=== PATIENT | female | born 1940 | race African-American/Black ===

== ENCOUNTER 2017-08-01 11:47 | Emergency (ER) | payer MEDICARE, BC ==
[~2017-08-01] VITALS: Ht 160 cm; Wt 60.0 kg
[2017-08-01 12:05] VITALS: BP 189/86
[2017-08-01] MEDS ORDERED: AMLO5TAB88 (12:08)
[2017-08-01] MEDS ORDERED: LORA10TA7 (12:08)
[2017-08-01] MEDS ORDERED: TRAMADOL 50MG TABLET PO ONE (16:30)
== END 2017-08-01 18:26 | disposition home or self-care (01) ==
LOC: ER 12:43
DX: S70.02XA Contusion of left hip, initial encounter (principal); M54.9 Dorsalgia, unspecified; S20.219A Contusion of unspecified front wall of thorax, initial encounter; W01.0XXA Fall on same level from slipping, tripping and stumbling without subsequent striking against object, initial encounter; Y93.01 Activity, walking, marching and hiking; Y92.512 Supermarket, store or market as the place of occurrence of the external cause; I10 Essential (primary) hypertension; M51.37 Other intervertebral disc degeneration, lumbosacral region
CPT/HCPCS: 71101; 72070; 72100; 73502; 99284